=== PATIENT | male | born 1940 | race Caucasian/White ===

== ENCOUNTER → 2017-02-13 | Outpatient (CLI) | payer OTHER ==
[~2017-02-13] MED LIST: CIPR-255 PO; DUTA0.5C PO; IBUP-1050 PO; MULT-506 PO; OPTIRAY 320 IV PRN; OXYC7.5T65 PO; PHEN-775 PO
--- NOTE | 2017-02-13 10:56 | DIAGNOSTIC IMAGING REPORT ---
CT UROGRAM CLINICAL HISTORY: Microscopic hematuria. COMPARISON STUDY: No priors. TECHNIQUE: Before and following the IV administration of 120 cc of Optiray 320, CT urogram of the abdomen and pelvis is performed from the lung bases to the proximal femora. Images are reviewed in the axial, sagittal, and coronal planes. IV contrast was administered without complication. CT DOSE: 658.40 mGy.cm FINDINGS: Lung bases: The heart is normal in size and without pericardial effusion. Exam is changes is suspected. There is a 2.2 cm nodule at the right lung base. This contains coarse calcifications and small foci of macroscopic fat, and likely represents a hamartoma. No airspace consolidation or pleural effusion is seen. Liver: The contrast-enhanced liver is normal in size, contour, and attenuation. There is no intrahepatic biliary ductal dilatation. The hepatic veins and portal veins are patent. Gallbladder: Unremarkable. Spleen: Normal in size and attenuation. Pancreas: The pancreas is moderately atrophic. There is diffuse glandular calcification consistent with chronic pancreatitis. Adrenal glands: Unremarkable. Kidneys and ureters: The contrast enhanced kidneys demonstrate cortical atrophy. There is a staghorn calculus identified in the left renal pelvis. This measures over 3.0 cm in maximum diameter. There are numerous additional nonobstructing left renal calculi. The largest is in the interpolar region and measures up to 13 mm. There are at least 3 punctate nonobstructing right renal calculi. There is mild fullness of the left renal collecting system, likely related to the staghorn calculus. No hydronephrosis is clearly seen. Urothelial thickening is present within the left renal collecting system. The kidneys enhance and excrete symmetrically. There are numerous bilateral renal cysts measuring up to 2.8 cm. Additional subcentimeter cortical hypodensities also likely represent cysts but are too small for definitive characterization. There is no enhancing renal cortical mass lesion identified. There is no evidence of urothelial lesion within the renal pelvis bilaterally or along the course of either ureter. The left ureter is not well opacified by excreted contrast. Abdominal vasculature: The abdominal aorta is normal in course and caliber noting advanced atherosclerotic calcification. Bowel: The small bowel and colon are normal in course and caliber. The appendix is not identified. Peritoneum: There is no intraperitoneal free air or abdominal ascites. There is a small fat-containing umbilical hernia. Lymphadenopathy: None. Pelvic viscera: Evaluation of the pelvis is significantly degraded by streak artifact from a right hip arthroplasty. Small layering bladder calculi are identified on the unenhanced series. The prostate gland is enlarged and heterogeneous, measuring up to 5.1 cm transverse diameter. There is median lobe hypertrophy. The bladder wall is mildly thickened and trabeculated. Small bladder diverticula are noted, and the appearance is consistent with chronic bladder outlet obstruction. A small diverticulum of the bladder dome may represent a urachal diverticulum. Skeletal structures: The skeletal structures are osteopenic. There is mild to moderate lumbosacral spondylosis. Minimal anterolisthesis is present at L4-L5 and L5-S1. No lytic or blastic bony lesions are seen. IMPRESSION: 1. There is a staghorn calculus in the left renal pelvis measuring over 3 cm in maximum length. There is mild associated urothelial thickening in the left renal pelvis. 2. There are numerous additional nonobstructing left renal calculi. Punctate nonobstructing calculi are seen in the right kidney. 3. There is no enhancing renal cortical mass. No evidence of urothelial lesion is seen within the renal pelvis bilaterally or along the course of the ureters. 4. Small layering calculi are present within the bladder. 5. Prostatomegaly with evidence of chronic bladder outlet obstruction. 6. Findings are consistent with chronic pancreatitis. 7. A 2.2 cm nodule at the right lung base contains large calcifications and foci of macroscopic fat. 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 8. A small diverticulum at the dome of the bladder may represent a urachal diverticulum. 9. Additional findings as detailed above. Electronically signed by: Varghese Clark M.D. 02/13/2017 10:54 AM Dictated Date/Time: 02/13/2017 10:41 AM
== END | disposition home or self-care (01) ==
LOC: C.CTS 09:22
PROVIDERS: ATTEND Urology
DX: N20.0 Calculus of kidney (principal); N21.0 Calculus in bladder; N32.3 Diverticulum of bladder; N40.0 Benign prostatic hyperplasia without lower urinary tract symptoms; R91.1 Solitary pulmonary nodule

== ENCOUNTER → 2017-08-07 | Day surgery (SDC) | payer OTHER ==
[2017-07-13 10:46] VITALS: BMI 19.0
--- NOTE | 2017-07-13 11:09 | PAT Medication Instructions ---
Service Date Jul 13, 2017. Current Home Medication List Dutasteride (Avodart), 0.5 MG PO QAM Ibuprofen (Advil), 400 MG PO PRN Multivitamin (Multivitamin), 2 TAB PO QAM Medication Instructions For Your Scheduled Surgery - Check with surgeon for instructions: Ibuprofen (Advil), 400 MG PO PRN - Hold the following medications the morning of surgery: Dutasteride (Avodart), 0.5 MG PO QAM Multivitamin (Multivitamin), 2 TAB PO QAM If you have any questions please call us at [phone] or [phone] or [phone]
--- NOTE | 2017-07-13 11:51 | DIAGNOSTIC IMAGING REPORT ---
CHEST PREADMISSION(PA/LAT) CLINICAL HISTORY: PAT preoperative evaluation COMPARISON STUDY: No previous studies for comparison. FINDINGS: The bones soft tissues and hemidiaphragms are normal. The cardiomediastinal silhouette is normal. The lungs are clear. The pulmonary vasculature is normal. IMPRESSION: Negative chest. The above report was generated using voice recognition software. It may contain grammatical, syntax or spelling errors. Electronically signed by: Denis Ruggiero M.D. 07/13/2017 11:50 AM Dictated Date/Time: 07/13/2017 11:50 AM
[2017-07-13 12:20] LABS: BASO % 0.3 %; BASO ABS # 0.03 K/uL (0-0.2); COMPLETE YES; EOS % 1.6 %; HEMATOCRIT 40.1 % (42-52); IG% 0.3 %; LYMPH % 20.3 %; LYMPH ABS # 1.77 K/uL (1.2-3.4); MEAN CELL VOLUME 91.1 fL (80-100); MEAN CORPUSCULAR HEMOGLOBIN 29.3 pg (25-34); MEAN CORPUSCULAR HGB CONC 32.2 g/dl (32-36); MEAN PLATELET VOLUME 8.8 fL (7.4-10.4); MONO % 9.2 %; NEUT % 68.3 %; PLATELET COUNT 311 K/uL (130-400); WHITE BLOOD COUNT 8.73 K/uL (4.8-10.8)
[2017-07-13 12:25] LABS: URINE APPEARANCE CLEAR (CLEAR); URINE BILIRUBIN NEG (NEG); URINE COLOR YELLOW; URINE NITRITE NEG (NEG); URINE SPECIFIC GRAVITY 1.021 (1.000-1.030); UROBILINOGEN NEG (NEG)
[2017-07-13 12:40] LABS: MANUAL MICROSCOPIC REQUIRED? NO; REVIEW REQ? NO
[2017-07-13 12:48] LABS: BUN/CREATININE RATIO 19.6 (10-20); CALCIUM 9.1 mg/dl (8.5-10.1); CREATININE 1.1 mg/dl (0.60-1.40); POTASSIUM 3.8 mmol/L (3.5-5.1)
[~2017-08-07] VITALS: Ht 172.7 cm; Wt 58.1 kg
[~2017-08-07] MED LIST changes: +ATROPINE SULFATE 0.1 MG/ML 5ML SYR IV PRN; +BELLADONNA/OPIUM SUPP 60 MG SUPP PR ONE; +CIPROFLOXACIN / D5W 400 MG IV SCH; +CONRAY 30% 150ML BOTTLE ONE; +DEXAMETHASONE SOD INJ 4 MG/ML VIAL ONE; +EpHEDrine SULFATE INJ 50 MG/ML AMP IV PRN; +FENTANYL CITRATE INJ 50 MCG/1 ML 2 ML VIAL IV PRN; +FENTANYL CITRATE INJ 50 MCG/1 ML 2 ML VIAL ONE; +LACTATED RINGER'S 1000ML 1,000 ML IV SCH; +LIDOCAINE HCL 2% 2 ML VIAL (20MG/ML) ONE; +MIDAZOLAM HCL 1 MG/ML 2ML VIAL ONE; +ONDANSETRON INJ 2 MG/ML 2 ML VIAL IV PRN; +ONDANSETRON INJ 2 MG/ML 2 ML VIAL ONE; -OPTIRAY 320 IV PRN; +OXYCODONE/ACETAMINOPHEN 7.5-325 TAB PO PRN; +PHENAZOPYRIDINE HCL 200 MG TAB PO PRN; +PHENYLEPHRINE 100MCG/ML 5ML SYR ONE; +PHENYLEPHRINE HCL INJ 10 MG/ML VIAL ONE; +PROMETHAZINE HCL INJ 6.25 MG in SODIUM CHLORIDE 0.9% 50ML 50 ML IV PRN; +PROPOFOL IV EMULSION 10 MG/ML 20 ML VIAL IV ONE
--- NOTE | 2017-08-07 11:39 | History & Physical Bridge Note ---
H&P Re-Evaluation Bridge Note: I have examined the patient, reviewed the History & Physical and in the interval since the performance of the History & Physical I have noted the following changes of clinical significance: No changes noted
[2017-08-07 11:59] VITALS: BP 142/85; PULSE 99; TEMP 36.8; O2SAT 97; Ht 172.7 cm; Wt 58.1 kg
--- NOTE | 2017-08-07 12:01 | Discharge Instructions ---
Discharge Instructions Date of Service Aug 07, 2017. Admission Reason for Admission: Left Renal Stone, Benign Prostatic Hyperplasia Discharge Discharge Diagnosis / Problem: BPH s/p TURP, L renal stone Discharge Goals Goal(s): Improve function, Improve disease control, Therapeutic intervention Activity Recommendations Activity Limitations: as noted below Lifting Limitations: no more than 25 pounds, gradually increase as tolerated ( x 5 days) Exercise/Sports Limitations: rest today, gradually increase as tolerated (x 5 days) May Resume Sexual Activity: after two weeks Shower/Bathe: may shower/bathe in 3 days (no tub bath with loja in place) Driving or Machine Use: resume 3 days after discharge . Instructions / Follow-Up Instructions / Follow-Up Trial of void in [place] office on Aug 10, 2017 at 09:20 AM. Postoperative visit, possible stent removal with KUB on Aug 21, 2017 at 12:30 PM. Discharge Diet Recommended Diet: Regular Diet (good fluid intake) Procedures Procedures Performed: TURP, left ureteroscopy with laser litho and stent Pending Studies Studies pending at discharge: yes List of pending studies: Pathology, stone analysis Medical Emergencies . Who to Call and When: Medical Emergencies: If at any time you feel your situation is an emergency, please call 911 immediately. . Non-Emergent Contact Non-Emergency issues call your: Urologist Call Non-Emergent contact if: you have a fever, temperature is above 101, your pain is not controlled, your pain is worsening, your pain is unusual for you, your pain is concerning you, you have any medication questions . . "Provider Documentation" section prepared by Sreedhar Gorman. . VTE Core Measure Inpt VTE Proph given/why not?: SCD's [place] Drug Monitoring Program Search Results: patient reviewed within database, see additional documentation (last Rx for narcotics in Sep 2016 - none recent)
--- NOTE | 2017-08-07 15:19 | [facility] Post Operative Brief Note ---
Immediate Operative Summary Operative Date Aug 07, 2017. Pre-Operative Diagnosis 3 cm Left Renal Stone, Benign Prostatic Hyperplasia, Bladder Stones Post-Operative Diagnosis 3 cm Left Renal Stone, Benign Prostatic Hyperplasia, Bladder Stones Procedure(s) Performed Cystoscopy, extraction of bladder stones, bipolar transurethral resection and button vaporization of prostate, left retrograde pyelography, left flexible ureteroscopy with laser lithotripsy, basket stone extraction and ureteral stent placement. Surgeon Dr. Azalea Gorman Pulping Machine Operator Surgeon(s) NONE Estimated Blood Loss 20 ml Findings Open prostatic fossa with excellent hemostasis after resection, no left ureteral injuries, no large renal stone fragments noted on direct visualization or fluoroscopy, good left ureteral stent position Specimens A: Bladder Stones B: Prostate Chips C: Left Kidney Stones for Chemical Analysis Drains 22 fr 15 cc H2O loja, left 6 fr multilength ureteral stent Anesthesia GALMA Complication(s) None Disposition Recovery Room / PACU
--- NOTE | 2017-08-07 15:28 | [facility] Operative Report ---
Operative Report Operative Date Aug 07, 2017. Pre-Operative Diagnosis 3 cm Left Renal Stone, Benign Prostatic Hyperplasia, Bladder Stones Post-Operative Diagnosis 3 cm Left Renal Stone, Benign Prostatic Hyperplasia, Bladder Stones Procedure(s) Performed Cystoscopy, extraction of bladder stones, bipolar transurethral resection and button vaporization of prostate, left retrograde pyelography, left flexible ureteroscopy with laser lithotripsy, basket stone extraction and ureteral stent placement. Surgeon Dr. Azalea Gorman Manufacturing Development Engineer Surgeon(s) NONE Estimated Blood Loss 20 ml Findings Open prostatic fossa with excellent hemostasis after resection, no left ureteral injuries, no large renal stone fragments noted on direct visualization or fluoroscopy, good left ureteral stent position Specimens A: Bladder Stones B: Prostate Chips C: Left Kidney Stones for Chemical Analysis Drains 22 fr 15 cc H2O loja, left 6 fr multilength ureteral stent Anesthesia GALMA Complication(s) None Disposition Recovery Room / PACU Indications Patient is a 77-year-old male seen as an outpatient for history of voiding difficulties and microhematuria. Office cystoscopies demonstrated BPH and bladder stones. Patient is also noted to have a large left renal stone noted on his CT scan. Seen his multiple findings he is being brought to the operating room for endoscopic management of all these problems. Please see H&P for further details. Intravenous ciprofloxacin was provided for antibiotic coverage. SCDs used for DVT prophylaxis. Description of Procedure Patient was properly identified and brought into the operative suite after identification of appropriate consent of the chart. General anesthesia with laryngeal mask was initiated and patient was prepped and draped in standard fashion for this procedure. Full timeout procedure was followed. 26 [place]ib[place]ian resectoscope was introduced into the bladder under direct visualization using a visual obturator. Mobile small stones within the bladder were appreciated. These were able to be irrigated free without the need for fragmentation and were sent for pathologic analysis. Ureteral orifices were well visualized and noted to be well removed from the bladder neck. Grade 3 trabeculation of the bladder with no evidence of intravesical tumor or papillary lesions was noted. Using the bipolar loop circumferential resection of the prostate was performed. Fragments of prostate tissue were irrigated free and sent as prostate chips for pathologic analysis. Bipolar button was then used to vaporize residual tissue and create relaxing incisions at the 5 and 7 o'clock position to avoid future bladder neck contracture. Hemostasis was obtained as necessary using the button. After this was complete the resectoscope was removed after ensuring no tissue or stones were residual within the bladder. Cystoscope was replaced in the left ureteral orifice was addressed using an open-ended 5 Djib[place]ian catheter. Gentle retrograde pyelography was performed demonstrating a normal ureter and a slightly dilated renal pelvis. Stones had been noted on operation shift supervisor imaging of the left upper quadrant consistent with the patient's previous imaging findings. A sensor tip wire was advanced via the open-ended catheter and kept as a safety wire until the end of the case. Amplatz Super Stiff wire was used as a working wire and cystoscope was backloaded off the wires after placement. A 10/19 35 cm ureteral access sheath was placed up to the level of the proximal ureter without resistance or difficulties. Fiberoptic flexible ureteroscope was advanced up to the level of the left renal pelvis and complete pyeloscopy was performed. This demonstrated 3 large stones, the largest of which was a agnes stone within the confines of the renal pelvis. No tumors or other abnormalities were appreciated. Using first dusting settings and then standard fragmentation settings the stone was broken into smaller, more manageable pieces using a 200 fiber. After this was complete and when both on fluoroscopy and under direct visualization no large fragments of stones were appreciated a small stone fragment was grasped and removed for chemical analysis. A relatively tight UPJ whether due to inflammation or some intrinsic stenosis precluded basket removal of all the stone fragments. These were however felt to be sufficiently small to pass after a period of passive stent dilation. After completion of the ureteroscopy complete exit ureteroscopy including removal of the access sheath was performed demonstrating no ureteral injury, tears or significant residual stones. Cystoscope was backloaded over the safety wire and a 6 [place]ib[place]ian multilength stent was advanced with redundant coil was present within the left renal pelvis and full coil present within the bladder. Persistent hemostasis was appreciated from the prostatic fossa at this point. Bladder was partially distended and cystoscope was removed. 22 [place]ian Loja catheter was placed with return of clear light pink irrigant. 15 mL of sterile water were placed within the balloon. Anesthesia was reversed and the patient was transferred to the recovery room in stable condition. Follow-up care: Patient will be discharged home today with Loja catheter in place. Outpatient trial void later this week is arranged. Patient's provided with prescription for ciprofloxacin, pain meds and Pyridium. Postoperative appointments are confirmed. Patient is instructed to contact our service should he note any fevers, chills, nausea, vomiting or other significant difficulties in the postoperative period. I attest to the content of the Intraoperative Record and any orders documented therein. Any exceptions are noted below.
--- NOTE | 2017-08-07 15:37 | DIAGNOSTIC IMAGING REPORT ---
INTRAOPERATIVE RADIOGRAPHS CLINICAL HISTORY: Laser lithotripsy and left-sided ureteral stent placement. Fluoroscopy time: 64 seconds. FINDINGS: 5 spot fluoroscopic views of the left abdomen are correlated with abdominal CT dated 02/13/2017. There is cannulation of the left ureter. A large filling defect in the left renal pelvis is consistent with a staghorn calculus. The final image shows a left ureteral stent in place. IMPRESSION: Intraoperative images from a left-sided lithotripsy and ureteral stent placement procedure as above. See operative report for detailed findings. Electronically signed by: Varghese Clark M.D. 08/07/2017 3:36 PM Dictated Date/Time: 08/07/2017 3:34 PM
--- NOTE | 2017-08-07 15:47 | Anesthesiology Progress Note ---
Anesthesia Post Op Note Date & Time Aug 07, 2017 at 15:47 Vital Signs Pain Intensity: 0 Vital Signs Past 12 Hours Date Time Temp Pulse Resp B/P (MAP) Pulse Ox O2 Delivery O2 Flow Rate FiO2 08/07/17 15:36 37.5 85 20 111/71 (80) 99 Room Air 08/07/17 15:28 86 15 08/07/17 15:28 87 15 99 08/07/17 15:27 86 21 100 08/07/17 15:27 85 21 08/07/17 15:25 116/73 08/07/17 15:22 86 14 08/07/17 15:22 85 14 100 08/07/17 15:21 109/68 08/07/17 15:17 80 7 08/07/17 15:17 80 7 100 08/07/17 15:15 128/75 08/07/17 15:13 110/74 08/07/17 15:12 36.4 87 16 110/74 100 Mask 10 08/07/17 15:12 92 18 08/07/17 15:12 93 18 100 08/07/17 11:59 36.8 99 20 142/85 (104) 97 Room Air Notes Mental Status: alert / awake / arousable, participated in evaluation Pt Amnestic to Procedure: Yes Nausea / Vomiting: adequately controlled Pain: adequately controlled Airway Patency, RR, SpO2: stable & adequate BP & HR: stable & adequate Hydration State: stable & adequate Anesthetic Complications: no major complications apparent
[2017-08-07 16:00] VITALS: BP 117/70; PULSE 78; TEMP 36.7; O2SAT 99
[2017-08-07 16:32] VITALS: BP 133/71; PULSE 80; O2SAT 98
[2017-08-07 16:59] VITALS: BP 112/65; PULSE 85; TEMP 36.6; O2SAT 97
== END | disposition home or self-care (01) ==
LOC: C.ACU 11:21
PROVIDERS: ATTEND Urology
DX: N20.2 Calculus of kidney with calculus of ureter (principal); N21.0 Calculus in bladder; N40.0 Benign prostatic hyperplasia without lower urinary tract symptoms; Z87.891 Personal history of nicotine dependence; Z79.899 Other long term (current) drug therapy

== ENCOUNTER → 2018-03-12 | Outpatient (CLI) | payer OTHER ==
[~2018-03-12] MED LIST changes: -ATROPINE SULFATE 0.1 MG/ML 5ML SYR IV PRN; -BELLADONNA/OPIUM SUPP 60 MG SUPP PR ONE; -CIPROFLOXACIN / D5W 400 MG IV SCH; -CONRAY 30% 150ML BOTTLE ONE; -DEXAMETHASONE SOD INJ 4 MG/ML VIAL ONE; -EpHEDrine SULFATE INJ 50 MG/ML AMP IV PRN; -FENTANYL CITRATE INJ 50 MCG/1 ML 2 ML VIAL IV PRN; -FENTANYL CITRATE INJ 50 MCG/1 ML 2 ML VIAL ONE; -LACTATED RINGER'S 1000ML 1,000 ML IV SCH; -LIDOCAINE HCL 2% 2 ML VIAL (20MG/ML) ONE; -MIDAZOLAM HCL 1 MG/ML 2ML VIAL ONE; -ONDANSETRON INJ 2 MG/ML 2 ML VIAL IV PRN; -ONDANSETRON INJ 2 MG/ML 2 ML VIAL ONE; -OXYC7.5T65 PO; -OXYCODONE/ACETAMINOPHEN 7.5-325 TAB PO PRN; -PHEN-775 PO; -PHENAZOPYRIDINE HCL 200 MG TAB PO PRN; -PHENYLEPHRINE 100MCG/ML 5ML SYR ONE; -PHENYLEPHRINE HCL INJ 10 MG/ML VIAL ONE; -PROMETHAZINE HCL INJ 6.25 MG in SODIUM CHLORIDE 0.9% 50ML 50 ML IV PRN; -PROPOFOL IV EMULSION 10 MG/ML 20 ML VIAL IV ONE
--- NOTE | 2018-03-12 13:43 | DIAGNOSTIC IMAGING REPORT ---
KUB CLINICAL HISTORY: 77 years-old Male presenting with N20.0 Nephrolithiasis. TECHNIQUE: Single supine view of the abdomen was obtained. COMPARISON: 08/22/[address] of abdomen and pelvis from 02/13/2017. FINDINGS: Nonobstructive bowel gas pattern. No gross pneumoperitoneum. Calcifications in the epigastrium consistent with chronic pancreatitis. Calcified nodule at the paramediastinal right lung base, likely hamartoma. There has been removal of the left ureteral stent. Large cluster of calcifications consistent with renal calculi in the region of the left renal pelvis. Additional left renal calculi including a prominent cluster in the interpolar region noted. Stable distribution of pelvic phleboliths and atherosclerotic calcification. No convincing evidence of ureteral calculi allowing for bowel gas and stool. Postsurgical changes of total right hip arthroplasty. IMPRESSION: 1. Bilateral nephrolithiasis with a prominent cluster of calculi at the level of the left renal pelvis. No radiographic evidence of ureteral calculi. 2. Removal of the left ureteral stent. Electronically signed by: David Simpson M.D. 03/12/2018 1:42 PM Dictated Date/Time: 03/12/2018 1:38 PM
[2018-03-12 14:42] LABS: BLOOD UREA NITROGEN 14 mg/dl (7-18); CREATININE 1.07 mg/dl (0.60-1.40)
== END | disposition home or self-care (01) ==
LOC: C.RAD 12:56
PROVIDERS: ATTEND Urology
DX: N20.0 Calculus of kidney (principal); R97.20 Elevated prostate specific antigen [PSA]; R39.12 Poor urinary stream